=== PATIENT | male | born 1960 | race Two or more races ===

== ENCOUNTER → 2017-02-19 | Outpatient (CLI) | payer MEDICAID, MEDICARE, OTHER ==
--- NOTE | 2017-02-19 19:32 | REP ---
Chest x-ray: Three views: History: Cough. Comparison chest x-ray 05/12/2014. Findings: There is a severe diffuse interstitial fibrosis pattern seen throughout the lung rodriguez. Emphysematous changes are noted in the upper lobes. The pleural angles are sharp. No focal infiltrate is seen. The interstitial fibrosis pattern is significantly more pronounced than on the 05/12/2014 prior study. No bony abnormality is seen. The heart is not enlarged. No free pleural effusion. Impression: Severe diffuse interstitial pulmonary fibrosis pattern radiographically progressed from prior study. No focal infiltrate seen. Signed by Danny Aceves MD 02/20/2017 01:32 P
== END ==
LOC: M LRY 18:19
PROVIDERS: ATTEND Physician Assistant
DX: J84.9 Interstitial pulmonary disease, unspecified (principal); R05 Cough

== ENCOUNTER → 2017-05-21 | Outpatient (REF) | payer MEDICAID, OTHER ==
[~2017-05-21] MED LIST: ASPI81CH PO; ASPI81TAEC PO; BAYE1TAB5 PO; BENA25CA4 PO; COMBAER6 INH; [UNRECOGNIZED DRUG - REMARK] EX; [UNRECOGNIZED DRUG - REMARK] EXT
[2017-05-24 00:06] LABS: SJOGREN'S ANTI SS-A <0.2 AI (0.0-0.9); SJOGREN'S ANTI SS-B <0.2 AI (0.0-0.9)
== END ==
LOC: M LAB REF 10:49
PROVIDERS: ATTEND Internal Medicine Pulmonary Disease
DX: J84.10 Pulmonary fibrosis, unspecified (principal)

== ENCOUNTER → 2017-05-31 | Outpatient (CLI) | payer MEDICAID, MEDICARE, OTHER ==
--- NOTE | 2017-05-31 10:02 | REP ---
Clinical: Dyspnea. Comparison: 05/12/2014. Findings: Extensive emphysematous changes with bronchiectasis and diffuse subpleural fibrosis with peripheral honeycombing pattern is appreciated and considerably progressed from prior examination. No acute consolidation, obvious nodule or mass lesion is identified. No pleural effusion or pneumothorax. Mediastinal lymph nodes measure up to 12.5 mm short axis diameter and are nonspecific, and hilar adenopathy is suggested but poorly evaluated due to the lack of intravenous contrast. Thoracic aorta appears mildly ectatic measuring 3.7 cm diameter. Chronic pulmonary arterial hypertension is appreciated with the pulmonary trunk measuring greater than 3.5 cm diameter. Surrounding musculoskeletal structures are intact. Limited evaluation of the upper abdomen demonstrates atrophic appearance to the right kidney with presumed cyst. Impression: 1. Evidence for marked COPD and diffuse pulmonary fibrosis along with evidence for chronic pulmonary arterial hypertension. 2. No acute consolidation, nodule/mass, or effusion. 3. Mild/moderate ectasia to the thoracic aorta. 4. Atrophic right kidney with suspected 4 cm cyst. Signed by Damion Beyer MD 05/31/2017 09:53 A
== END ==
LOC: M RAD 09:14
PROVIDERS: ATTEND Internal Medicine Pulmonary Disease
DX: R06.00 Dyspnea, unspecified (principal); J84.10 Pulmonary fibrosis, unspecified

== ENCOUNTER → 2017-06-12 | Outpatient (CLI) | payer OTHER ==
[2017-06-12 09:14] LABS: ABG BASE EXCESS -0.5 (-2.0-2.0); ABG HCO3 23.6 MEQ/L (22.0-26.0); ABG PARTIAL PRESSURE CO2 37.1 mmHg (35.0-45.0); ABG PARTIAL PRESSURE O2 64.7 mmHg (75.0-100.0); ABG TOTAL CO2 24.7 MEQ/L (22.0-29.0); ABG pH (ARTERIAL) 7.421 UNITS (7.350-7.450)
--- NOTE | 2017-06-12 09:55 | PFTRPT ---
Tech: EllaMandi TONG RRT Age: 57 Sex: Male Race: Height: 72.00 Inches Weight: 142.00 Lbs BSA: 1.84 Diagnosis: R06.00 TECH NOTES: Puffs of albuterol. IVC is less than 85% of VC. DLCO may be underestimated. The patient had difficulty performing all maneuvers; therefore , reliability of results is questionable. PULMONARY FUNCTION REPORT ORDERING PROVIDER: Chuck Taylor M.D. DATE OF SERVICE: 06/12/17 SPIROMETRY: Some difficulty with the required maneuvers is identified. Suboptimal effort is noted. Data acquisition is, therefore, hampered. The forced vital capacity is severely reduced. The FEV1 is in proportion. The obstructive index is, therefore, normal. FLOW VOLUME LOOP: The expiratory limb of the flow volume loop suggests suboptimal performance with the required maneuvers. No significant bronchodilator response is identified. LUNG VOLUMES: The total lung capacity is reduced. The residual volume suggests concomitant air trapping. DIFFUSION CAPACITY: The diffusion capacity is reduced and does not correct for alveolar volume. HEMOGLOBIN: The hemoglobin is acceptable at 14.3. AIRWAY MECHANICS: Airways resistance and conductance are normal. IMPRESSION: Suspect a restrictive ventilatory impairment with a diffusion capacity impairment. Please correlate clinically. MTDD
== END ==
LOC: M CARPUL 08:49
PROVIDERS: ATTEND Internal Medicine Pulmonary Disease
DX: R06.00 Dyspnea, unspecified (principal)

== ENCOUNTER → 2017-08-26 | Outpatient (CLI) | payer OTHER ==
[~2017-08-26] MED LIST changes: +GLUCAGON FOR INJ 1 MG VIAL (J1610) As Ordered ONE; +ISOVUE-370 76% 100ML VIAL (Q9967) As Ordered ONE; +VoLumen 0.1% SUSPENSION 450ML BOTTLE As Ordered ONE
== END ==
LOC: M RAD 12:56
PROVIDERS: ATTEND Physician Assistant Medical
DX: R63.4 Abnormal weight loss (principal); D64.9 Anemia, unspecified

== ENCOUNTER → 2017-09-11 | Outpatient (CLI) | payer OTHER ==
--- NOTE | 2017-09-11 10:18 | REP ---
Clinical: Abnormal weight loss. Technique: Axial contrast enhanced images from the lung bases to the pubic symphysis using enterographic protocol including arterial and portal venous phase sequencing from the lung bases to the pubic symphysis using 100 ml Isovue 370 intravenous contrast material with coronal and sagittal re-formations. Findings: The lung bases demonstrate advanced interstitial fibrosis with diffuse bilateral honeycombing. Visualized portions of the heart and pericardium are relatively normal although mild cardiomegaly cannot be excluded. Liver, spleen, pancreas, gallbladder, and bilateral adrenal glands are normal. The kidneys demonstrate mild cortical scarring as well as subcentimeter left renal cysts and 3.7 cm right renal cyst with moderate atrophic appearance to the right kidney. Evaluation of the enteric system including stomach, small and large bowel is grossly unremarkable and without obstruction or acute inflammatory process. Fecal impaction to the rectum which measures 8.6 cm is suspected and should be correlated clinically. Pelvis demonstrates normal bladder and age appropriate prostate/seminal vesicles. No ascites. No free air. No adenopathy. Atherosclerotic changes of the aorta and vasculature without aneurysm. Musculoskeletal structures demonstrate degenerative changes without focal osseous abnormality. Impression: 1. Advanced interstitial fibrosis to the bilateral lung rodriguez with honeycombing and scattered scarring. 2. Nonacute changes to the bilateral kidneys including moderate atrophy to the right kidney and 3.7 cm cyst along with few bilateral sub centimeter cysts. 3. Evaluation of the enteric system is grossly unremarkable although fecal impaction at the rectum which is distended to 8.6 cm is suggested. 4. No further acute abdominopelvic pathology appreciated. Signed by Damion Beyer MD 09/11/2017 10:09 A
== END ==
LOC: M RAD 08:08
PROVIDERS: ATTEND Physician Assistant Medical
DX: R63.4 Abnormal weight loss (principal); D64.9 Anemia, unspecified; R91.8 Other nonspecific abnormal finding of lung field
CPT/HCPCS: 74177; J1610; Q9967